=== PATIENT | male | born 1995 | race Caucasian/White ===

== ENCOUNTER 2017-10-05 19:41 | Emergency (ER) | payer OTHER ==
[~2017-10-05] VITALS: Ht 170.2 cm; Wt 65.8 kg
--- NOTE | 2017-10-05 21:00 | NUR ---
PATIENT IS RESTING IN ER BED, NAD NOTED, VITAL SIGNS UPDATED.
--- NOTE | 2017-10-05 21:30 | NUR ---
PATIENT AMBULATED TO ER RESTROOM WITH STEADY GAIT.
[2017-10-05 21:32] VITALS: BP 109/60
--- NOTE | 2017-10-05 21:34 | NUR ---
Note linus in EDM - 10/05/17 at 2136 by LESLEY IV removed. Catheter intact and site benign. Pressure and 4x4 applied to site. No bleeding noted.Patient discharged to home in stable condition. Written and verbal after care instructions given. Patient verbalizes understanding of instruction.
--- NOTE | 2017-10-05 21:36 | NUR ---
Patient eloped from facility. PATIENT IS ALERT, NO DISTRESS NOTED. I ADVISED PATIENT TO REMAIN IN ED FOR FURTHER OBSERVATION. PATIENT DOESNT WANT TO STAY IN ED. ER MD notified.IV removed. Catheter intact and site benign. Pressure and 4x4 applied to site. No bleeding noted.
--- NOTE | 2017-10-05 22:47 | NUR ---
Suhail barriga in ED - 10/05/17 at 2255 by JESUS PT LEFT WITH [employer].
== END 2017-10-06 00:26 | disposition left against medical advice (07) ==
LOC: ER 19:42
DX: F11.10 Opioid abuse, uncomplicated (principal); F90.9 Attention-deficit hyperactivity disorder, unspecified type
CPT/HCPCS: 99283; A4606; Z7610